=== PATIENT | male | born 1955 ===

== ENCOUNTER 2019-08-10 09:46 | Day surgery (SDC) | payer OTHER ==
[~2019-08-10] VITALS: Ht 180.3 cm; Wt 85.4 kg
[~2019-08-10 09:46] MED LIST: ASPI81CH; Flonase 0.05% N16 GM; LISHYD1012 PO; LISHYD2012 PO; LORA2 PO; MELO7.5 PO; META800 PO; OXYACE5T PO; PRAV10 PO; PROM25 PO; ROSU10TA; WAL-ZYR10 MG
--- NOTE | 2019-08-10 10:23 | NUR ---
08/10/19 1023 Sandra Cordoba 1 MISSED IV IN RH HAND VALVE 1 GOOD IV IN RAC BY SONIDO VERA TOW
== END 2019-08-10 11:40 | disposition home or self-care (01) ==
LOC: ORSCSDS 09:46
PROVIDERS: Internal Medicine Gastroenterology
PROC: 0DBN8ZX Excision of Sigmoid Colon, Via Natural or Artificial Opening Endoscopic, Diagnostic (ICD-10-PCS; principal; 2019-08-10 11:00)
PROC: 0DBL8ZX Excision of Transverse Colon, Via Natural or Artificial Opening Endoscopic, Diagnostic (ICD-10-PCS; principal; 2019-08-10 11:00)
DX: Z12.11 Encounter for screening for malignant neoplasm of colon (principal); D12.5 Benign neoplasm of sigmoid colon; D12.3 Benign neoplasm of transverse colon; K57.30 Diverticulosis of large intestine without perforation or abscess without bleeding; K64.8 Other hemorrhoids; I10 Essential (primary) hypertension; Z79.899 Other long term (current) drug therapy; Z79.82 Long term (current) use of aspirin
CPT/HCPCS: 88305; J2704; J7120

== ENCOUNTER 2020-02-27 12:36 | Emergency (ER) | payer OTHER ==
[~2020-02-27] VITALS: Ht 177.8 cm; Wt 79.4 kg
[2020-02-27] MEDS ORDERED: ATOR80 PO (12:48)
== END 2020-02-27 13:55 | disposition home or self-care (01) ==
LOC: ER 12:36
DX: S63.502A Unspecified sprain of left wrist, initial encounter (principal); Z79.899 Other long term (current) drug therapy; Z79.82 Long term (current) use of aspirin; X58.XXXA Exposure to other specified factors, initial encounter
CPT/HCPCS: 29125; 73100; 99283-25

== ENCOUNTER → 2022-08-05 | Outpatient (CLI) | payer OTHER ==
[~2022-08-05] MED LIST changes: +ATOR80 PO
== END ==
LOC: LAB SHORT 10:04 → PLD 10:04 → LAB 10:04
DX: C44.629 Squamous cell carcinoma of skin of left upper limb, including shoulder (principal); L85.8 Other specified epidermal thickening
CPT/HCPCS: 88305

== ENCOUNTER 2025-05-26 21:13 | Emergency (ER) | payer OTHER ==
[~2025-05-26] VITALS: Ht 180.3 cm; Wt 93.0 kg
[~2025-05-26 21:13] MED LIST changes: -AMOCLA875 PO; -AZIT250 PO
[2025-05-26 21:58] LABS: Alanine Aminotransfer (ALT/SGP 30.0 U/L (12-78); Albumin, Blood 3.0 g/dL (3.4-5.0); Albumin/Globulin Ratio 0.9 (0.8-1.8); Anion Gap 6.0 mmol/L (3-11); Aspartate Aminotrans (AST/SGOT 27.0 U/L (12-37); Bilirubin, Total 0.8 mg/dL (0.1-1.0); Blood Urea Nitrogen 15.0 mg/dL (8-24); CO2, Blood 24.0 mmol/L (21-32); Calcium, Blood 8.1 mg/dL (8.5-10.1); Chloride, Blood 109.0 mmol/L (98-108); Creatinine, Blood 1.09 mg/dL (0.60-1.20); Globulin, Blood 3.3 g/dL (2.2-4.0); Glucose, Blood 180.0 mg/dL (70-99); Potassium, Blood 3.7 mmol/L (3.5-5.5); Sodium, Blood 135.0 mmol/L (136-145); Total Protein, Blood 6.3 g/dL (6.4-8.2)
[2025-05-26 22:21] LABS: BASOPHILS ABSOLUTE AUTO 0.02 K/mm3 (0.00-0.23); BASOPHILS PERCENT AUTO 0 % (0-2); EOSINOPHILS ABSOLUTE AUTO 0.01 K/mm3 (0.00-0.68); EOSINOPHILS PERCENT AUTO 0 % (0-6); Hematocrit 40.2 % (37.0-53.0); IMMATURE GRAN ABSOLUTE AUTO 0.05 K/mm3 (0.00-0.10); IMMATURE GRAN PERCENT AUTO 0 % (0-1); LYMPHOCYTES ABSOLUTE AUTO 1.86 K/mm3 (0.84-5.20); LYMPHOCYTES PERCENT AUTO 15 % (21-46); MONOCYTES ABSOLUTE AUTO 1.07 K/mm3 (0.16-1.47); MONOCYTES PERCENT AUTO 9 % (4-13); Mean Corpuscular HGB Conc 34.3 g/dL (31.5-36.5); Mean Corpuscular Volume 89 fL (80-100); NEUTROPHILS ABSOLUTE AUTO 9.17 K/mm3 (1.96-9.15); NEUTROPHILS PERCENT AUTO 75 % (41-73); NRBC ABSOLUTE 0.00 K/mm3 (0.00-0.02); NRBC Auto 0.0 /100 WBC (0.0-0.2); Platelet Count 231 K/mm3 (150-400); RDW Coefficient Variation 12.9 % (11.7-14.2); RDW Standard Deviation 42.3 fL (35.1-46.3)
[2025-05-26 22:22] LABS: Hemoglobin 13.8 g/dL (13.5-17.5)
[2025-05-26] MEDS ORDERED: AZIT250 PO ×2 (23:22→23:50)
[2025-05-26] MEDS ORDERED: AMOCLA875 PO ×2 (23:22→23:50)
[2025-05-26 23:45] VITALS: BP 114/73
== END 2025-05-26 23:53 | disposition home or self-care (01) ==
LOC: ER 21:13
PROVIDERS: Emergency Medicine
DX: J18.9 Pneumonia, unspecified organism (principal); Z79.82 Long term (current) use of aspirin; Z79.51 Long term (current) use of inhaled steroids; Z79.899 Other long term (current) drug therapy
CPT/HCPCS: 80053; 85025; A9270

== ENCOUNTER → 2025-05-26 | Outpatient (CLI) | payer OTHER ==
[~2025-05-26] MED LIST changes: +AMOCLA875 PO; +AZIT250 PO
[2025-05-26 16:32] LABS: BASOPHILS ABSOLUTE AUTO 0.03 K/mm3 (0.00-0.23); BASOPHILS PERCENT AUTO 0 % (0-2); EOSINOPHILS ABSOLUTE AUTO 0.00 K/mm3 (0.00-0.68); EOSINOPHILS PERCENT AUTO 0 % (0-6); Hematocrit 41.8 % (37.0-53.0); Hemoglobin 15.0 g/dL (13.5-17.5); IMMATURE GRAN ABSOLUTE AUTO 0.06 K/mm3 (0.00-0.10); IMMATURE GRAN PERCENT AUTO 1 % (0-1); LYMPHOCYTES ABSOLUTE AUTO 1.37 K/mm3 (0.84-5.20); LYMPHOCYTES PERCENT AUTO 11 % (21-46); MONOCYTES ABSOLUTE AUTO 0.81 K/mm3 (0.16-1.47); MONOCYTES PERCENT AUTO 7 % (4-13); Mean Corpuscular HGB Conc 35.9 g/dL (31.5-36.5); Mean Corpuscular Volume 91 fL (80-100); NEUTROPHILS ABSOLUTE AUTO 10.26 K/mm3 (1.96-9.15); NEUTROPHILS PERCENT AUTO 82 % (41-73); NRBC ABSOLUTE 0.00 K/mm3 (0.00-0.02); NRBC Auto 0.0 /100 WBC (0.0-0.2); Platelet Count 243 K/mm3 (150-400); RDW Coefficient Variation 13.3 % (11.7-14.2); RDW Standard Deviation 42.5 fL (35.1-46.3)
[2025-05-26 16:48] LABS: Alanine Aminotransfer (ALT/SGP 36.0 U/L (12-78); Albumin, Blood 3.5 g/dL (3.4-5.0); Albumin/Globulin Ratio 1.0 (0.8-1.8); Anion Gap 9.0 mmol/L (3-11); Aspartate Aminotrans (AST/SGOT 31.0 U/L (12-37); Bilirubin, Total 1.3 mg/dL (0.1-1.0); Blood Urea Nitrogen 16.0 mg/dL (8-24); CO2, Blood 26.0 mmol/L (21-32); Calcium, Blood 8.5 mg/dL (8.5-10.1); Chloride, Blood 99.0 mmol/L (98-108); Creatinine, Blood 1.3 mg/dL (0.60-1.20); Globulin, Blood 3.5 g/dL (2.2-4.0); Glucose, Blood 158.0 mg/dL (70-99); Potassium, Blood 3.4 mmol/L (3.5-5.5); Sodium, Blood 131.0 mmol/L (136-145); Total Protein, Blood 7.0 g/dL (6.4-8.2)
== END ==
LOC: LAB 16:27 → LAB SHORT 16:27
PROVIDERS: Emergency Medicine
DX: R82.2 Biliuria (principal)
CPT/HCPCS: 80053; 85025